=== PATIENT | female | born 2000 | race Asian ===

== ENCOUNTER 2024-12-09 19:29 | Emergency (ER) | payer OTHER ==
[~2024-12-09] VITALS: Ht 165.1 cm; Wt 55.0 kg
[2024-12-09 19:46] VITALS: O2SAT 99
[2024-12-09 19:48] VITALS: BP 112/74; PULSE 77; RESP 16; TEMP 36.7; O2SAT 100
[2024-12-09] MEDS: FAMOTIDINE 20MG TABLET PO ONE (20:52)
[2024-12-09] MEDS: DEXAMETHASONE 2MG TABLET PO ONE (20:52)
== END 2024-12-09 20:58 | disposition home or self-care (01) ==
LOC: ER 19:29
DX: T78.40XA Allergy, unspecified, initial encounter (principal); Z88.0 Allergy status to penicillin; Y92.89 Other specified places as the place of occurrence of the external cause
CPT/HCPCS: 99283; J8540